=== PATIENT | female | born 1945 | race Caucasian/White ===

== ENCOUNTER → 2018-11-08 | Outpatient (CLI) | payer OTHER ==
[2018-11-08 15:24] LABS: CREATININE 0.7 mg/dL (0.6-1.3)
== END ==
LOC: M.CT 14:53
PROVIDERS: Family Medicine
DX: N28.1 Cyst of kidney, acquired (principal); N20.0 Calculus of kidney

== ENCOUNTER 2019-06-06 13:15 | Emergency (ER) | payer OTHER ==
[~2019-06-06] VITALS: Ht 157.5 cm; Wt 54.4 kg
[2019-06-06] MEDS ORDERED: PREDNISONE 20 M20 M1 PO (14:13)
[2019-06-06] MEDS ORDERED: ZPAK PO (14:13)
[2019-06-06] MEDS ORDERED: VENTOLIN HFA 1818 GM INH (14:14)
[2019-06-06 14:20] VITALS: BP 122/61
== END 2019-06-06 14:21 | disposition home or self-care (01) ==
LOC: M.ERS 13:15
DX: J40 Bronchitis, not specified as acute or chronic (principal); Z88.2 Allergy status to sulfonamides

== ENCOUNTER 2020-03-27 13:03 | Emergency (ER) | payer OTHER ==
[~2020-03-27] VITALS: Ht 157.5 cm; Wt 59.0 kg
[~2020-03-27 13:03] MED LIST: PREDNISONE 20 M20 M1 PO; VENTOLIN HFA 1818 GM INH; ZPAK PO
[2020-03-27] MEDS ORDERED: CITALOPRAM HBR40 MG PO (14:01)
[2020-03-27] MEDS ORDERED: CRESTOR10 MG PO (14:02)
[2020-03-27 14:20] VITALS: BP 129/52
== END 2020-03-27 14:21 | disposition home or self-care (01) ==
LOC: M.ERS 13:03
DX: M54.5 Low back pain (principal); M54.2 Cervicalgia; M25.552 Pain in left hip; Z79.899 Other long term (current) drug therapy; Z86.73 Personal history of transient ischemic attack (TIA), and cerebral infarction without residual deficits; W07.XXXA Fall from chair, initial encounter; Y93.89 Activity, other specified; Y92.89 Other specified places as the place of occurrence of the external cause; Y99.9 Unspecified external cause status

== ENCOUNTER 2020-12-09 18:05 | Emergency (ER) | payer OTHER ==
[~2020-12-09] VITALS: Ht 152.4 cm; Wt 61.1 kg
[~2020-12-09 18:05] MED LIST changes: +CITALOPRAM HBR40 MG PO; +CRESTOR10 MG PO
[2020-12-09 18:50] LABS: ABSOLUTE BASOPHILS 0.1 thou/uL (0.0-0.2); ABSOLUTE EOSINOPHILS 0.2 thou/uL (0.0-0.7); ABSOLUTE LYMPHOCYTES 1.2 thou/uL (0.8-5.3); ABSOLUTE MONOCYTES 0.6 thou/uL (0.0-1.2); ABSOLUTE NEUTROPHILS 3.3 thou/uL (1.6-8.1); BASOPHILS 1.2 %; EOSINOPHILS 3.6 %; HEMOGLOBIN 11.3 gm/dL (12.0-15.0); LYMPHOCYTES 22.4 %; MCH 30.4 pg (26.0-34.0); MCHC 34.1 g/dL (28.0-37.0); MCV 88.9 fL (80.0-100.0); MONOCYTES 10.8 %; MPV 7.2 fl. (7.2-11.1); NUCLEATED RBCS 0 /100WBC; PLATELET COUNT* 221 thou/uL (150-400); RBC 3.71 mil/uL (4.20-5.00); WBC 5.3 thou/uL (4.0-11.0)
[2020-12-09 19:01] LABS: CALCIUM 9.2 mg/dL (8.5-10.1); CREATININE 0.8 mg/dL (0.6-1.3); POTASSIUM 3.4 mmol/L (3.5-5.1)
[2020-12-09 19:05] LABS: APTT 24.6 Seconds (25.0-31.3); PROTIME 10.4 Seconds (9.20-11.50)
[2020-12-09 19:09] LABS: ALBUMIN 4.2 g/dL (3.4-5.0); TOTAL BILIRUBIN 0.3 mg/dL (<0.1-1.0); TOTAL PROTEIN 7.5 g/dL (6.4-8.2)
[2020-12-09] MEDS ORDERED: ZANAFLEX4 MG PO (20:08)
[2020-12-09 20:18] VITALS: BP 140/51
--- NOTE | 2020-12-10 11:14 | EKG ---
[place] [address] ELECTROCARDIOGRAM REPORT Name: ILENE CHENEY Room: [facility]#: [id number] Admission: 12/09/20 Attend Phys: Discharge: 12/09/20 Date of : 45 Date of Service: 12/09/201827 Report #: [id number] THIS REPORT FOR: //name// [facility] ED Test Date: 2020-12-09 Test Time: 18:28:40 Pat Name: ILENE CHENEY Department: Room: Gender: F [employer]ist: : [id number] Requested By: Sandra Cole Order Number: [id number] MD: Sy Deshpande Measurements Intervals [place] Rate: 71 P: 69 VT: 177 QRS: -12 QRSD: 103 T: 37 QT: 436 QTc: 474 Interpretive Statements Sinus rhythm artifact noted Probable left atrial enlargement Low voltage, precordial leads No previous ECG available for comparison Electronically Signed On 12-10-2020 11:14:01 CDT by Sy Deshpande [email or web address] <ELECTRONICALLY SIGNED> By: Sy Deshpande MD, [facility] 12/10/20 1114 1828 1828 Sy Deshpande MD, [facility] /EPI
== END 2020-12-09 20:18 | disposition home or self-care (01) ==
LOC: M.ERS 18:05
PROVIDERS: Nurse Practitioner Family
DX: S01.81XA Laceration without foreign body of other part of head, initial encounter (principal); S16.1XXA Strain of muscle, fascia and tendon at neck level, initial encounter; S63.591A Other specified sprain of right wrist, initial encounter; S60.041A Contusion of right ring finger without damage to nail, initial encounter; S40.011A Contusion of right shoulder, initial encounter; S09.90XA Unspecified injury of head, initial encounter; Z79.899 Other long term (current) drug therapy; Z88.2 Allergy status to sulfonamides; W10.8XXA Fall (on) (from) other stairs and steps, initial encounter; Y93.89 Activity, other specified; Y92.89 Other specified places as the place of occurrence of the external cause; Y99.8 Other external cause status